=== PATIENT | female | born 1990 | race Caucasian/White ===

== ENCOUNTER 2018-05-21 20:16 | Emergency (ER) | payer OTHER ==
[~2018-05-21] VITALS: Ht 175.3 cm; Wt 64.4 kg
[2018-05-21 21:17] VITALS: BP_SYST 145
--- NOTE | 2018-05-21 21:38 | NUR ---
Pt placed to ER waiting room in stable condition.
--- NOTE | 2018-05-21 21:59 | NUR ---
Pt to X-ray.
--- NOTE | 2018-05-21 22:02 | NUR ---
Pt returns from X-ray to ER waiting room. Condition stable.
--- NOTE | 2018-05-21 22:07 | NUR ---
Pt placed to ER bed 08, report given to SOL Adams.
--- NOTE | 2018-05-21 22:22 | NUR ---
2222 - ER at bedside examining patient.
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
[2018-05-21 23:06] VITALS: BP_SYST 145
--- NOTE | 2018-05-21 23:06 | NUR ---
2309 - Patient given written and verbal discharge instructions and verbalizes understanding. ER MD discussed with patient the results and treatment provided. Patient in stable condition. ID arm band removed. Rx of naprosyn given. Patient educated on pain management and to follow up with PMD. Pain Scale 6. Opportunity for questions provided and answered. Medication side effect fact sheet provided.
[2018-05-21] MEDS: IBUPROFEN 800 MG TABLET PO ONE (23:20)
== END 2018-05-21 23:06 | disposition home or self-care (01) ==
LOC: SED 20:16
DX: S63.501A Unspecified sprain of right wrist, initial encounter (principal); S50.11XA Contusion of right forearm, initial encounter; S60.221A Contusion of right hand, initial encounter; R03.0 Elevated blood-pressure reading, without diagnosis of hypertension; Z88.0 Allergy status to penicillin; V43.52XA Car driver injured in collision with other type car in traffic accident, initial encounter; Y93.89 Activity, other specified; Y92.411 Interstate highway as the place of occurrence of the external cause; Y99.8 Other external cause status
CPT/HCPCS: 73090; 81025; 99283